=== PATIENT | female | born 1990 | race Caucasian/White ===

== ENCOUNTER 2023-12-20 16:14 | Emergency (ER) | payer MEDICAID ==
[~2023-12-20] VITALS: Ht 154.9 cm; Wt 72.6 kg
[2023-12-20 16:25] VITALS: BP_SYST 137; PULSE 60; RESP 18; TEMP 98.1; O2SAT 99
[2023-12-20] MEDS: HYDROcodone/ACETAMIN 5-325 MG TAB (NORCO/ VICODIN) PO ONE (17:29)
[2023-12-20] MEDS ORDERED: IBUP-1969 PO (19:17)
[2023-12-20 19:31] VITALS: BP_SYST 120; PULSE 74; RESP 18; TEMP 98; O2SAT 98
== END 2023-12-20 19:38 | disposition home or self-care (01) ==
LOC: SED 16:14
DX: M25.532 Pain in left wrist (principal); M25.531 Pain in right wrist; Z79.899 Other long term (current) drug therapy
CPT/HCPCS: 99283